=== PATIENT | male | born 1965 | race Two or more races ===

== ENCOUNTER 2017-06-02 03:01 | Emergency (ER) | payer OTHER ==
[~2017-06-02] VITALS: Ht 170.2 cm; Wt 99.3 kg
[2017-06-02 03:11] VITALS: BP 147/87
[2017-06-02] MEDS ORDERED: KETOROLAC TROMETHAMINE INJ 60 MG/2 ML VIAL IM ONE ×2 (03:11→03:30)
[2017-06-02] MEDS ORDERED: ONDANSETRON HCL/PF 4 MG/2 ML VIAL ONE (03:11)
--- NOTE | 2017-06-02 03:19 | NUR ---
medicated patient as ordered by Dr Black.
[2017-06-02] MEDS ORDERED: ONDANSETRON HCL/PF 4 MG/2 ML VIAL IM ONE (03:30)
== END 2017-06-02 03:47 | disposition home or self-care (01) ==
LOC: ER 03:05
DX: N20.0 Calculus of kidney (principal)
CPT/HCPCS: 96372 ×2; 99284; A4606; J1885; J2405; Z7610